=== PATIENT | female | born 1950 | race Two or more races ===

== ENCOUNTER → 2016-11-09 | Outpatient (CLI) | payer OTHER ==
--- NOTE | 2016-11-09 12:07 | RAD ---
Lumbar spine, 3 views, 11/09/2016: History: Back and left hip pain There is a mild left convexity lumbar scoliosis. The lumbar vertebral heights are well-maintained. There is mild disc space narrowing at several levels in the lower thoracic and upper lumbar spine. There are moderate scattered marginal spurs. There are mild degenerative changes involving the facet joints in the lower lumbar region. The paraspinous soft tissues are unremarkable. IMPRESSION: 1. Mild lumbar scoliosis. 2. Mild to moderate multilevel degenerative change. 3. No acute bony abnormality is detected. Left hip, 2 views, 11/09/2016: No fracture or dislocation is identified. The hip joint space is well-preserved. The periarticular soft tissues are unremarkable. IMPRESSION: No significant left hip abnormality is detected.
--- NOTE | 2016-11-10 14:24 | RAD ---
DATE: 11/09/2016 EXAM: DIGITAL SCREEN BILAT W/CAD HISTORY: Screening study. COMPARISON: None. This study was interpreted with the benefit of Computerized Aided Detection (CAD). FINDINGS: Digital MLO and CC mammograms of both breasts were obtained. The patient's previous mammograms were performed somewhere in [place] and are unavailable for comparison. The breast parenchyma is composed of scattered fibroglandular densities which can obscure a lesion on mammography (breast density code B). Benign-appearing calcifications are seen within both breasts. No spiculated mass is seen. No malignant appearing calcification or area of architectural distortion is noted. IMPRESSION: BI-RADS Category 1, negative. There is no mammographic evidence of malignancy. Routine yearly screening mammography is recommended for follow-up. BI-RADS CATEGORY: 1 NEGATIVE RECOMMENDED FOLLOW-UP: 12M 12 MONTH FOLLOW-UP PQRS compliance statement: Patient information was entered into a reminder system with a target due date 11/09/2017 for the next mammogram. Mammography is a sensitive method for finding small breast cancers, but it does not detect them all and is not a substitute for careful clinical examination. A negative mammogram does not negate a clinically suspicious finding and should not result in delay in biopsying a clinically suspicious abnormality. "Our facility is accredited by the [employer] Mammography Program."
== END | disposition home or self-care (01) ==
LOC: RAD 11:05
PROVIDERS: ATTEND Family Medicine
DX: Z12.31 Encounter for screening mammogram for malignant neoplasm of breast (principal); M54.5 Low back pain; M41.86 Other forms of scoliosis, lumbar region; M25.552 Pain in left hip
CPT/HCPCS: 72100; 73502; G0202; 77067

== ENCOUNTER 2019-01-03 10:03 | Outpatient (CLI) | payer OTHER, MEDICAID ==
[~2019-01-03] VITALS: Ht 152.4 cm; Wt 72.6 kg
[~2019-01-03 10:03] MED LIST: ERTA1VIA IV; LACT1CAP19 PO
[2019-01-03 10:44] VITALS: BP 97/62
[2019-01-03] MEDS ORDERED: LIDOCAINE WITH 8.4% SOD BICARB 3 ML DISP.SYRIN. ONE (11:05)
[2019-01-03] MEDS ORDERED: LIDOCAINE WITH 8.4% SOD BICARB 3 ML DISP.SYRIN. IJ ONE (11:30)
[2019-01-03] MEDS ORDERED: LIDOCAINE WITH 8.4% SOD BICARB 3 ML DISP.SYRIN. INJ ONE (11:45)
--- NOTE | 2019-01-03 12:00 | NUR ---
Discharge Note: ISAI SIMMS Discharge instructions and discharge home medications reviewed with Patient and son; and a copy given. All questions have been answered and understanding verbalized. The following instructions and handouts were given: PICC line placement and care. Discontinued lines and drains: Right midline dc'd and [place] upper arm PICC line placed. Per Dr. Ho Patient discharged to home with son via car.
--- NOTE | 2019-01-03 12:28 | RAD ---
Exam: Fluoroscopic and ultrasound guided right percutaneous inserted central venous catheter placement 01/03/2019 12:24 PM .Indication: Long-term IV infusions Technique: Informed oral and written consent were obtained. The right upper extremity was prepped and draped using sterile barrier technique. All elements of maximal sterile barrier technique including the use of a cap, mask, sterile gown, sterile gloves, large sterile sheet, appropriate hand hygiene, and 2% chlorhexidine for cutaneous antisepsis (or acceptable alternative antiseptic per current guidelines) were followed for this procedure.. Real-time ultrasound demonstrated a patent right basilic vein. The right upper extremity was prepped and draped in usual sterile fashion. 1% lidocaine used for local anesthesia. Using real-time ultrasound guidance the access needle percutaneously punctured the selected vein. Reference ultrasound images were saved to the medical record. A guidewire was advanced through the needle to the cavoatrial junction, and a peel-away sheath placed. The catheter was cut to length and inserted through the peel-away sheath. The final position of the catheter was confirmed by fluoroscopy, with tip at the cavoatrial junction. The wire and sheath were removed, and the catheter secured in place, and a sterile dressing was applied. Catheter was found to flush and aspirate normally. No immediate complications are identified. FLUORO TIME: 0.3 minutes DOSE AREA PRODUCT: 2 Gycm2 Impression: Ultrasound and fluoroscopically guided placement of a right upper extremity PICC line.
== END 2019-01-03 12:00 | disposition home or self-care (01) ==
LOC: INTRAD 10:03 → MERGE 10:03 → INTRAD 12:00
PROVIDERS: ATTEND Family Medicine
DX: Z45.2 Encounter for adjustment and management of vascular access device (principal)
CPT/HCPCS: 36573; C1751; C1892; 36569; 76937; 77001

== ENCOUNTER → 2019-02-19 | Outpatient (CLI) | payer OTHER, MEDICAID ==
--- NOTE | 2019-02-19 16:22 | RAD ---
MRI Lumbar Spine without contrast History: Low back pain, radicular pain Technique: Multiplanar, multi sequential noncontrast MR imaging was performed of the lumbar spine. Comparison: None Findings: Lumbar vertebral body stature is overall maintained. There is very mild grade 1 anterior spondylolisthesis at L4-L5. There is minimal posterior subluxation L1 relative L2. Conus terminates at T12-L1. There is moderate degenerative disc disease greater anteriorly at L1-2, associated degenerative endplate change. There is mild degenerative disc disease L2-3 through L4-5. There is trace L1-2 endplate edema likely reactive/degenerative in etiology. There is wdaw-ne-ztgzgbza levoscoliosis centered near L2. It would be difficult to exclude some increased T2 and STIR signal of the visualized distal cord although could be artifactual. Not fully evaluated, there is exophytic focus of T2 hyperintense signal of the right kidney about 4.8 cm. There is probable moderate right hydronephrosis not fully evaluated. L1-L2: There is minimal disc osteophyte complex and bulge. There is mild buckling of the ligamentum flavum and facet degenerative change. There is mild narrowing of the far lateral recesses somewhat greater on the right. There is mild to moderate narrowing of the right neural foramen primarily from posteriorly by facet, left neural foramen adequate. L2-L3: There is mild buckling of the ligamentum flavum and facet hypertrophic change. There is a shallow protrusion eccentric to the far left lateral recess about 1 to 2 mm AP. There is mild narrowing of the far lateral recesses greater on the left. There is mild narrowing of the left neural foramen, right neural foramen overall adequate. L3-L4: There is mild buckling of the ligamentum flavum and facet hypertrophic change. There is minimal narrowing of the far lateral recesses. There is minimal narrowing of the left neural foramen, right neural foramen adequate. L4-L5: There is minimal disc osteophyte complex. There is mild buckling of the ligamentum flavum and facet hypertrophic change. There is jzqd-pj-oyoueytn narrowing of the far right lateral recess, to lesser degree on the left. There is mild to moderate narrowing of the left neural foramen by facet and disc osteophyte complex, right neural foramen not significantly narrowed. L5-S1: Spinal canal and neural foramina are adequate. There is ghpj-jo-txepkcjv facet degenerative change. Impression: 1. There is variable narrowing of the lateral recesses as stated most notable right greater than left at L4-5 and on the left at L2-3. 2. There is moderate degenerative disc disease L1-2, minimally L2-3 through L4-5. There is mild spondylosis. 3. There is kwck-jx-bebyfcne narrowing of the left L4-5 and right L1-2 neural foramina, other minimal narrowing as stated. 4. There is kgej-ui-epalvulb lumbar levoscoliosis centered near L2. 5. There is suspected moderate right hydronephrosis. There is exophytic lesion of the right kidney which may be a large cyst although not fully evaluated. 6. It is difficult to exclude mild increased T2 and STIR signal of the visualized distal cord although findings possibly artifactual especially if no clinical suspicion for thoracic myelopathy. Electronically signed by: Lucio Samano MD (02/19/2019 4:19 PM) [id number]
== END | disposition home or self-care (01) ==
LOC: MRI 14:00
PROVIDERS: ATTEND Family Medicine
DX: M48.061 Spinal stenosis, lumbar region without neurogenic claudication (principal); M51.16 Intervertebral disc disorders with radiculopathy, lumbar region; M47.26 Other spondylosis with radiculopathy, lumbar region; M47.818 Spondylosis without myelopathy or radiculopathy, sacral and sacrococcygeal region; M43.16 Spondylolisthesis, lumbar region; M53.2X6 Spinal instabilities, lumbar region; M25.78 Osteophyte, vertebrae
CPT/HCPCS: 72148

== ENCOUNTER → 2019-03-12 | Outpatient (CLI) | payer OTHER, MEDICAID ==
--- NOTE | 2019-03-12 17:30 | RAD ---
RENAL COMPLETE BILATERAL History: Renal cysts Comparison: December 20, [address] exam Findings: Multiple sonographic images of the kidneys and retroperitoneal structures are submitted. Right kidney measured 8.3 x 3.9 x 5.6 cm. There is anechoic lesion of the mid right kidney about 5.9 x 5.7 x 6.2 cm. Left kidney measured 11.5 x 4.8 x 4.7 cm. There is anechoic lesion of the superior left kidney about 4.7 x 5 x 4.9 cm. There is no hydronephrosis of either kidney. Urinary bladder is not well distended during exam for accurate evaluation. There is segmental visualization of the inferior vena cava. Abdominal aortic caliber is within normal limits up to 1.5 cm distally, proximally obscured by bowel gas. Impression: 1. There are simple bilateral renal cysts, no hydronephrosis of either kidney. Electronically signed by: Lucio Samano MD (03/12/2019 5:28 PM) [id number]
== END | disposition home or self-care (01) ==
LOC: US 10:57
PROVIDERS: ATTEND Family Medicine
DX: N28.1 Cyst of kidney, acquired (principal); N28.89 Other specified disorders of kidney and ureter
CPT/HCPCS: 76770

== ENCOUNTER 2019-07-13 10:22 | Emergency (ER) | payer OTHER, MEDICAID ==
[~2019-07-13] VITALS: Ht 152.4 cm; Wt 76.8 kg
[2019-07-13 10:31] VITALS: BP 156/69
[2019-07-13] MEDS ORDERED: METH4TAB2 PO (10:44)
[2019-07-13] MEDS ORDERED: BENZ100C PO (10:44)
--- NOTE | 2019-07-13 10:48 | PHYS DOC ---
Adult General Chief Complaint Chief Complaint: COUGH HPI HPI Patient is a 68 year old female who presents with 3 days of dry cough and redness around her eyes. She states she's been taking Benadryl is not helping. Patient denies shortness of air, chest pain, vomiting, nausea, abdominal pain, sore throat, nasal congestion, vision changes, weakness, fever, headache, dizziness. Patient denies any pain. Review of Systems Review of Systems Eyes: Denies change in visual acuity, redness, or eye pain. Dry eyes. [] Respiratory: cough or denies shortness of breath [] Integument: Red skin around eyes. Denies rash or skin lesions [] All other systems were reviewed and found to be within normal limits, except as documented in this note. Allergies Allergies Allergies Coded Allergies Type Severity Reaction Last Updated Verified I S O L A T I O N *CONTACT* Allergy Unknown 01/02/19 No Penicillins Allergy Unknown 01/02/19 No Physical Exam Physical Exam Constitutional: Well developed, well nourished, no acute distress, non-toxic appearance. [] HENT: Normocephalic, atraumatic, bilateral external ears normal, oropharynx moist, no oral exudates, nose normal. Red, dry skin around eye bilaterally. [] Eyes: PERRLA, EOMI, conjunctiva normal, no discharge. [] Neck: Normal range of motion, no tenderness, supple, no stridor. [] Cardiovascular:Heart rate regular rhythm, no murmur [] Lungs & Thorax: Bilateral breath sounds clear to auscultation [] Abdomen: Bowel sounds normal, soft, no tenderness, no masses, no pulsatile masses. [] Skin: Warm, dry, no erythema, no rash. [] Back: No tenderness, no CVA tenderness. [] Extremities: No tenderness, no cyanosis, no clubbing, ROM intact, no edema. [] Neurologic: Alert and oriented X 3, normal motor function, normal sensory function, no focal deficits noted. [] Psychologic: Affect normal, judgement normal, mood normal. [] EKG EKG [] Radiology/Procedures Radiology/Procedures [] Course & Med Decision Making Course & Med Decision Making Pertinent Labs and Imaging studies reviewed. (See chart for details) She has dry skin around her eyes bilaterally that is reddened and dry. No swelling around her eyes. Patient states her eyes also feel very dry. Patient states that she has the heat turned up very high in the house and uses no lotions. Patient states her cough is dry but is not very bothersome. Alert and oriented. Speaks in full clear sentences. Ambulatory with a steady gait. Son is in the room and he is interpreting for the patient. Mucous membranes are moist. Vital signs within normal limits. Patient is afebrile. Patient is stable and in no distress. Clear to auscultation all lobes. Bilateral tympanic white. Throat is pink without exudates or swelling. She is advised to use Visine for dry eyes, lotions or Vaseline for her dry skin. I will order her a prednisone dose pack and Tessalon Perles for her cough. [] Dragon Disclaimer Dragon Disclaimer This electronic medical record was generated, in whole or in part, using a voice recognition dictation system. Departure Departure Impression: Primary Impression: Cough Additional Impression: Dry skin Disposition: 01 HOME, SELF-CARE Condition: STABLE Referrals: CORRIE WILHELM MD (PCP) Patient Instructions: Cough, Adult Additional Instructions: Follow up with primary care provider. Use vaseline or A &D ointment for dry skin patches. Take medications as prescribed. Scripts Benzonatate (TESSALON PERLE) 100 Mg Capsule 1 CAP PO TID, #30 CAP Prov: HAKEEM CAIN APRN 07/13/19 Methylprednisolone (MEDROL) 4 Mg Tab.ds.pk 1 PKG PO UD, #1 PKG Prov: HAKEEM CAIN APRN 07/13/19 Problem Qualifiers HAKEEM CAIN APRN Jul 13, 2019 10:48
== END 2019-07-13 10:54 | disposition home or self-care (01) ==
LOC: ER 10:22
DX: L85.3 Xerosis cutis (principal); R05 Cough
CPT/HCPCS: 99283

== ENCOUNTER → 2019-12-18 | Outpatient (CLI) | payer OTHER, MEDICAID ==
[~2019-12-18] MED LIST changes: +BENZ100C PO; -ERTA1VIA IV; +ERTA1VIA16 IV; +METH4TAB2 PO
--- NOTE | 2019-12-18 10:57 | KCIC ---
EXAM: Bilateral hips and pelvis, 3 views; lumbar spine, 3 views. HISTORY: Pain COMPARISON: 11/09/2016. FINDINGS: Pelvis and bilateral hips: A frontal view the pelvis and 2 views of the hips are obtained. There is no fracture, dislocation or subluxation. The femoral heads are normal in configuration. Lumbar spine: 3 views of the lumbar spine are obtained. There is lumbar levoscoliosis centered at L2. There is lumbar hyperlordosis. There is grade 1 anterolisthesis of L4 and L5 and L5 on S1 and mild retrolisthesis of L1 on L2 and L2 on L3. There is degenerative endplate remodeling with disc space narrowing and spurring primarily at the lower thoracic and upper lumbar levels. There is facet arthropathy predominantly at the lower lumbar levels. IMPRESSION: 1. Multilevel degenerative change involving the lower thoracic and lumbar spine, described above. 2. Lumbar levoscoliosis and multilevel listhesis. 3. No acute osseous finding. Electronically signed by: Lin Sweet MD (12/18/2019 10:54 AM) [id number]
== END | disposition home or self-care (01) ==
LOC: KCIC 09:36
PROVIDERS: ATTEND Nurse Practitioner Gerontology
DX: M47.815 Spondylosis without myelopathy or radiculopathy, thoracolumbar region (principal); M41.86 Other forms of scoliosis, lumbar region; M43.17 Spondylolisthesis, lumbosacral region; M25.551 Pain in right hip; M25.552 Pain in left hip
CPT/HCPCS: 72100; 73521

== ENCOUNTER → 2020-01-07 | Outpatient (CLI) | payer OTHER, MEDICAID ==
--- NOTE | 2020-01-07 15:10 | RAD ---
LUMBAR SPINE WO CONTRAST Date: 01/07/2020 1:00 PM Indication: Reason: LBP / Spl. Instructions: / History: Comparison: Radiograph 12/18/2019. MRI 02/19/2019. Technique: Multi-planar multi-weighted magnetic resonance imaging of the lumbar spine was performed without intravenous contrast using the standard lumbar spine protocol. FINDINGS: Trace retrolisthesis at L1-2. Left convex lumbar curvature. No acute fracture. Mild multilevel degenerative disc desiccation and disc height loss. No marrow replacing process to suggest malignancy. The conus terminates at a normal level. No abnormal signal is seen within the visualized distal spinal cord. No clumping of intrathecal nerve roots. Partially visualized right renal cyst. T12-L1: Disc bulge. No facet arthropathy. No significant spinal stenosis or neural foraminal narrowing. L1-L2: Disc bulge. Mild facet arthropathy. Mild spinal stenosis and right lateral recess narrowing. Moderate right and mild left neural foraminal narrowing. L2-L3: Disc bulge. Mild facet arthropathy. Mild spinal stenosis and lateral recess narrowing. Mild to moderate bilateral neural foraminal narrowing. L3-L4: Disc bulge. Mild facet arthropathy. Mild spinal stenosis right lateral recess narrowing. Mild to moderate bilateral neural foraminal narrowing. L4-L5: Disc bulge. Mild facet arthropathy. Ligamentum flavum thickening. Mild to moderate spinal stenosis and lateral recess narrowing. Mild to moderate bilateral neural foraminal narrowing. L5-S1: Disc bulge. Mild right and moderate left facet arthropathy. No significant spinal stenosis. Mild left neural foraminal narrowing. IMPRESSION: Mild to moderate lumbar spondylosis, detailed level by level above. Degenerative changes are not significantly progressed from the prior exam. Electronically signed by: Lucio Villa MD (01/07/2020 3:07 PM) [id number]
== END | disposition home or self-care (01) ==
LOC: MRI 12:45
PROVIDERS: ATTEND Nurse Practitioner Gerontology
DX: M47.816 Spondylosis without myelopathy or radiculopathy, lumbar region (principal); M43.16 Spondylolisthesis, lumbar region; M48.061 Spinal stenosis, lumbar region without neurogenic claudication; M99.53 Intervertebral disc stenosis of neural canal of lumbar region
CPT/HCPCS: 72148

== ENCOUNTER 2020-06-04 09:16 | Inpatient (IN) | payer OTHER, MEDICAID ==
[~2020-06-04] VITALS: Ht 152.4 cm; Wt 78.9 kg
--- NOTE | 2020-06-04 09:43 | PHYS DOC ---
Past Medical History Past Medical History hld Past Surgical History: No Surgical History Smoking Status: Never Smoker Alcohol Use: None General Adult EDM: Chief Complaint: WRIST PAIN HPI: HPI: This is a pleasant 69-year-old female presents emergency department today with left wrist injury after slipping on the ice. She reports falling forward and injuring her left wrist. She also has a small abrasion under her lip without laceration. She did hit her head but she did not pass out. The pain in her wrist is moderate to severe throbbing aching pain without alleviating factors. She reports normal motor and sensory function of the hand distally. She denies any other injuries. Review of systems negative for chest pain shortness of breath vomiting fevers chills. All other review of systems negative. ED course: 69-year-old female presenting with left wrist injury after a fall. X-ray shows distal radius fracture. Spoke with Dr. Pulido our orthopedic surgeon who will plan on surgical treatment. Will admit the patient to the hospitalist. I spoke with the hospitalist who accepts the patient for admission. Patient was splinted prior to admission in a sugar tong. Splint is within normal limits with 2-second cap refill. Heart Score: Risk Factors: Risk Factors: DM, Current or recent (<one month) smoker, HTN, HLP, family history of CAD, obesity. Risk Scores: Score 0 - 3: 2.5% MACE over next 6 weeks - Discharge Home Score 4 - 6: 20.3% MACE over next 6 weeks - Admit for Clinical Observation Score 7 - 10: 72.7% MACE over next 6 weeks - Early Invasive Strategies Allergies: Allergies: Allergies Coded Allergies Type Severity Reaction Last Updated Verified I S O L A T I O N *CONTACT* Allergy Unknown 01/02/19 No Penicillins Allergy Unknown 01/02/19 No Physical Exam: PE: General Appearance alert, cooperative, no distress, responsive Head Normocephalic, without obvious abnormality, atraumatic Eyes conjunctivae/corneas clear. PERRL, EOM's intact. Ears normal TM's and external ear canals AU Nose Nares normal. Septum midline. Mucosa normal. No drainage or sinus tenderness. Mouth: small abrasion under the lip without laceration. teeth in normal alignment. tongue normal. Throat no blood or lacerations, normal alignment Neck supple, symmetrical, trachea midline Back/Spine symmetric, normal curvature. ROM normal, no abrasions, no tenderness to palpation, no step-offs Lungs clear to auscultation bilaterally Chest Wall normal ribcage without tenderness to palpation, crepitus or emphysema Heart reg rate and regular rhythm, S1, S2 normal, no murmur, click, rub or gallop Abdomen soft, non-tender. Bowel sounds normal. No masses, no organomegaly Pelvic stable Extremities The patient's left wrist is deformed without any abrasions lacerations. Skin overlying is intact. No punctate lesions. Normal sensation of the hand. Patient is able to make an A-OK, cross fingers and gives a thumbs up. The elbow proximally and shoulder are nontender. Nontender clavicle. 2-second cap refill with palpable radial pulse. The remainder of the extremities are nontender with normal range of motion of the joints without any pain with range of motion of the joints. Her hips are nontender bilaterally with passive range of motion of the joints. Palpable pulse distally with 2-second cap refill of the remainder the extremities. Pulses 2+ and symmetric Skin Skin color, texture, turgor normal. No rashes or lesions Neurologic Grossly normal Eye opening: (4) spontaneous Best motor response: (6) obeys verbal command Best verbal response: (5) oriented and converses Total [place] (E + M + V) = 15 EKG: EKG: [] Radiology/Procedures: Radiology/Procedures: [] Course & Med Decision Making: Course & Med Decision Making Pertinent Labs and Imaging studies reviewed. (See chart for details) [] Dragon Disclaimer: Dragon Disclaimer: This electronic medical record was generated, in whole or in part, using a voice recognition dictation system. Departure Departure Impression: Primary Impression: Wrist fracture Disposition: ADMITTED INPT THIS HOSP Admitting Physician: HIMJignesh Condition: STABLE Referrals: CORRIE WILHELM MD (PCP) SAHRA DUENAS MD Jun 04, 2020 09:43
[2020-06-04] MEDS ORDERED: HYDROmorphone 2 MG/ML VIAL IVP ONE ×2 (09:45→12:30)
--- NOTE | 2020-06-04 10:04 | RAD ---
EXAM: Left wrist, 3 views. HISTORY: Pain. COMPARISON: None. FINDINGS: 3 views of the left wrist are obtained. There is a comminuted displaced and angulated dista l radial metaphyseal fracture with dorsal inclination of the distal radial articular surface. No werner tional fracture is seen. There is soft tissue swelling. IMPRESSION: Comminuted distal radial metaphyseal fracture. Electronically signed by: Lin Sweet MD (06/04/2020 10:01 AM) [id number]
[2020-06-04] MEDS ORDERED: LIDOCAINE 2% Multi-Dose 20 ML VIAL. IJ ONE (10:15)
--- NOTE | 2020-06-04 10:54 | RAD ---
CT HEAD WITHOUT CONTRAST 06/04/2020 10:02 AM Indication: Reason: head injury / Spl. Instructions: / History: Comparison: None available Procedure: Multidetector CT imaging of the head was performed without the administration of contrast. Findings: There is no evidence of acute intracranial hemorrhage. There is no evidence of acute territ orial infarction. Please note that CT is limited for evaluation of acute ischemia. No mass effect or midline shift is identified . The ventricles and basilar cisterns have an appropriate appearance. No abnormal extra-axial fluid collections are seen. No acute osseous changes are identified. Impression: No evidence of acute intracranial abnormality CT DOSING PQRS STATEMENT: One or more of the following individualized dose reduction techniques were utilized for this examinat ion: 1. Automated exposure control 2. Adjustment of the mA and/or kV according to patient size 3. Use of iterative reconstruction technique Electronically signed by: Reese Ho MD (06/04/2020 10:41 AM) [id number]
[2020-06-04] MEDS ORDERED: IV NORMAL SALINE 1000ML BAG 1,000 ML IV SCH (12:15)
[2020-06-04 12:31] LABS: BASO % 0 % (0-3); EOS # 0.1 x10^3/uL (0.0-0.7); EOS % 2 % (0-3); HEMATOCRIT 36.3 % (36.0-47.0); HEMOGLOBIN 12.2 g/dL (12.0-15.5); LYMPH # 1.4 x10^3/uL (1.0-4.8); LYMPH % 25 % (24-48); MEAN CORPUSCULAR HEMOGLOBIN 32 pg (25-35); MEAN CORPUSCULAR HGB CONC 34 g/dL (31-37); MEAN CORPUSCULAR VOLUME 94 fL (79-100); MONO # 0.3 x10^3/uL (0.0-1.1); MONO % 6 % (0-9); NEUT # 3.8 x10^3/uL (1.8-7.7); NEUT % 67 % (31-73); PLATELET COUNT 159 x10^3/uL (140-400); RED BLOOD COUNT 3.85 x10^6/uL (3.50-5.40); RED CELL DISTRIBUTION WIDTH 14.4 % (11.5-14.5); WHITE BLOOD COUNT 5.6 x10^3/uL (4.0-11.0)
[2020-06-04 12:40] LABS: CALCIUM 8.5 mg/dL (8.5-10.1); CREATININE 0.7 mg/dL (0.6-1.0); GFR 82.5; POTASSIUM 4.1 mmol/L (3.5-5.1)
[2020-06-04 12:47] LABS: ALBUMIN 3.4 g/dL (3.4-5.0); ALBUMIN/GLOBULIN RATIO 1.3 (1.0-1.7); TOTAL BILIRUBIN 0.4 mg/dL (0.2-1.0)
[2020-06-04 15:00] VITALS: BP_SYST 108; BP_SYST 116; BP_DIAS 80
[2020-06-04] MEDS ORDERED: ONDANSETRON PF 4 MG/2 ML VIAL. IVP PRN (15:00)
--- NOTE | 2020-06-04 16:36 | PDOC2 ---
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 Her granddaughter was in the room and helped to translate. The patient slipped on ice and fell injuring the wrist, with obvious deformity. She was admitted through the emergency room. Orthopedics was consulted. She bumped her lip and has some swelling there. Some left elbow pain as well. The wrist is the most painful and is the only thing deformed. The skin was reported is intact. Social History No ALCOHOL: rare Lives: with Family Current Medications Current Medications Current Medications Hydromorphone HCl (Dilaudid) 0.5 mg 1X ONCE IVP Last administered on 06/04/20at 10:08; Start 06/04/20 at 09:45; Stop 06/04/20 at 09:46; Status DC Lidocaine HCl (Lidocaine 2% 20ml Vial) 10 ml 1X ONCE IJ Last administered on 06/04/20at 10:15; Start 06/04/20 at 10:15; Stop 06/04/20 at 10:16; Status DC Sodium Chloride 1,000 ml @ 100 mls/hr Q10H IV Last administered on 06/04/20at 12:34; Start 06/04/20 at 12:15; Stop 06/04/20 at 16:14; Status DC Hydromorphone HCl (Dilaudid) 0.5 mg 1X ONCE IVP Last administered on 06/04/20at 12:34; Start 06/04/20 at 12:30; Stop 06/04/20 at 12:31; Status DC Ondansetron HCl (Zofran) 4 mg PRN Q6HRS PRN IVP NAUSEA/VOMITING; Start 06/04/20 at 15:00 Ondansetron HCl (Zofran) 4 mg PRN Q6HRS PRN IV NAUSEA/VOMITING Last administered on 06/04/20at 16:02; Start 06/05/20 at 07:00; Stop 06/06/20 at 06:59 Fentanyl Citrate (Fentanyl 2ml Vial) 25 mcg PRN Q5MIN PRN IV MILD PAIN 1-3; Start 06/05/20 at 07:00; Stop 06/06/20 at 06:59 Fentanyl Citrate (Fentanyl 2ml Vial) 50 mcg PRN Q5MIN PRN IV MODERATE TO SEVERE PAIN; Start 06/05/20 at 07:00; Stop 06/06/20 at 06:59 Morphine Sulfate (Morphine Sulfate) 1 mg PRN Q10MIN PRN IV SEVERE PAIN 7-10; Start 06/05/20 at 07:00; Stop 06/06/20 at 06:59 Ringer's Solution 1,000 ml @ 30 mls/hr Q24H IV ; Start 06/05/20 at 07:00; Stop 06/05/20 at 18:59 Lidocaine HCl (Xylocaine-Mpf 1% 2ml Vial) 2 ml PRN 1X PRN ID PRIOR TO IV START; Start 06/05/20 at 07:00; Stop 06/06/20 at 06:59 Hydromorphone HCl (Dilaudid) 0.5 mg PRN Q10MIN PRN IV SEV PAIN, Second choice; Start 06/05/20 at 07:00; Stop 06/06/20 at 06:59 Prochlorperazine Edisylate (Compazine) 5 mg PACU PRN PRN IV NAUSEA, MRX1; Start 06/05/20 at 07:00; Stop 06/06/20 at 06:59 Benzonatate (Tessalon Perle) 100 mg TID PO ; Start 06/04/20 at 21:00 Ertapenem (INVanz 1GM IVPB for PT ASSIST PROGRAM) 1 gm DAILY IV ; Start 06/05/20 at 09:00; Status UNV Lactobacillus Rhamnosus (Culturelle) 1 cap DAILY PO ; Start 06/05/20 at 09:00 Active Scripts Active Tessalon Perle (Benzonatate) 100 Mg Capsule 1 Cap PO TID Medrol (Methylprednisolone) 4 Mg Tab.ds.pk 1 Pkg PO UD Reported Culturelle (Lactobacillus Rhamnosus Gg) 1 Each Cap.sprink 1 Each PO DAILY Invanz (Ertapenem Sodium) 1 Gm Vial 1 Gm IV DAILY Allergies Allergies: Coded Allergies: I S O L A T I O N *CONTACT* (Verified Allergy, Unknown, 06/05/20) ESBL urine Penicillins (Verified Allergy, Unknown, 06/05/20) TOLERATES ERTAPENEM ROS Review of System Review of systems negative for chest pain shortness of breath vomiting fevers chills. All other review of systems negative Physical Exam General: Alert, Cooperative, Other (Lip contusion with minor abrasion, no active bleeding. No apparent loose teeth.) HEENT: Other (As above lip contusion. Otherwise atraumatic.) Lungs: Normal air movement Heart: Regular rate Abdomen: Soft Extremities: No cyanosis, Normal pulses, Other (The wrist is in a splint which was not removed for the exam. There seems to be slight swelling at the wrist area. The alignment is mildly deformed even through the splint. There is tenderness at the wrist despite the splint. Motion is decreased but there is no evidence of specific neurovascular injury. Capillary refill is normal. Pulse is not assessable due to the tenderness of the wrist. Light touch sensation is intact. Motor function is present for the radial ulnar and median nerves. There is mild tenderness at the elbow. The skin is reported as intact over the fracture.) Skin: No breakdown, No significant lesion Neuro: Normal speech, Sensation intact Psych/Mental Status: Mental status NL, Mood NL Vitals VITALS Vital Signs Date Time Temp Pulse Resp B/P (MAP) Pulse Ox O2 Delivery O2 Flow Rate FiO2 06/04/20 15:00 98.2 81 16 116/80 (92) 96 Room Air 98.2 Labs Labs Laboratory Tests Test 06/04/20 12:08 06/04/20 12:20 White Blood Count 5.6 x10^3/uL (4.0-11.0) Red Blood Count 3.85 x10^6/uL (3.50-5.40) Hemoglobin 12.2 g/dL (12.0-15.5) Hematocrit 36.3 % (36.0-47.0) Mean Corpuscular Volume 94 fL (79-100) Mean Corpuscular Hemoglobin 32 pg (25-35) Mean Corpuscular Hemoglobin Concent 34 g/dL (31-37) Red Cell Distribution Width 14.4 % (11.5-14.5) Platelet Count 159 x10^3/uL (140-400) Neutrophils (%) (Auto) 67 % (31-73) Lymphocytes (%) (Auto) 25 % (24-48) Monocytes (%) (Auto) 6 % (0-9) Eosinophils (%) (Auto) 2 % (0-3) Basophils (%) (Auto) 0 % (0-3) Neutrophils # (Auto) 3.8 x10^3/uL (1.8-7.7) Lymphocytes # (Auto) 1.4 x10^3/uL (1.0-4.8) Monocytes # (Auto) 0.3 x10^3/uL (0.0-1.1) Eosinophils # (Auto) 0.1 x10^3/uL (0.0-0.7) Basophils # (Auto) 0.0 x10^3/uL (0.0-0.2) Sodium Level 140 mmol/L (136-145) Potassium Level 4.1 mmol/L (3.5-5.1) Chloride Level 106 mmol/L (98-107) Carbon Dioxide Level 25 mmol/L (21-32) Anion Gap 9 (6-14) Blood Urea Nitrogen 25 mg/dL (7-20) Creatinine 0.7 mg/dL (0.6-1.0) Estimated GFR (Cockcroft-Gault) 82.5 BUN/Creatinine Ratio 36 (6-20) Glucose Level 94 mg/dL (70-99) Calcium Level 8.5 mg/dL (8.5-10.1) Total Bilirubin 0.4 mg/dL (0.2-1.0) Aspartate Amino Transf (AST/SGOT) 25 U/L (15-37) Alanine Aminotransferase (ALT/SGPT) 35 U/L (14-59) Alkaline Phosphatase 45 U/L (46-116) Total Protein 6.0 g/dL (6.4-8.2) Albumin 3.4 g/dL (3.4-5.0) Albumin/Globulin Ratio 1.3 (1.0-1.7) SARS-CoV-2 Antigen (Rapid) Negative (NEGATIVE) Laboratory Tests Test 06/04/20 12:08 06/04/20 12:20 White Blood Count 5.6 x10^3/uL (4.0-11.0) Red Blood Count 3.85 x10^6/uL (3.50-5.40) Hemoglobin 12.2 g/dL (12.0-15.5) Hematocrit 36.3 % (36.0-47.0) Mean Corpuscular Volume 94 fL (79-100) Mean Corpuscular Hemoglobin 32 pg (25-35) Mean Corpuscular Hemoglobin Concent 34 g/dL (31-37) Red Cell Distribution Width 14.4 % (11.5-14.5) Platelet Count 159 x10^3/uL (140-400) Neutrophils (%) (Auto) 67 % (31-73) Lymphocytes (%) (Auto) 25 % (24-48) Monocytes (%) (Auto) 6 % (0-9) Eosinophils (%) (Auto) 2 % (0-3) Basophils (%) (Auto) 0 % (0-3) Neutrophils # (Auto) 3.8 x10^3/uL (1.8-7.7) Lymphocytes # (Auto) 1.4 x10^3/uL (1.0-4.8) Monocytes # (Auto) 0.3 x10^3/uL (0.0-1.1) Eosinophils # (Auto) 0.1 x10^3/uL (0.0-0.7) Basophils # (Auto) 0.0 x10^3/uL (0.0-0.2) Sodium Level 140 mmol/L (136-145) Potassium Level 4.1 mmol/L (3.5-5.1) Chloride Level 106 mmol/L (98-107) Carbon Dioxide Level 25 mmol/L (21-32) Anion Gap 9 (6-14) Blood Urea Nitrogen 25 mg/dL (7-20) Creatinine 0.7 mg/dL (0.6-1.0) Estimated GFR (Cockcroft-Gault) 82.5 BUN/Creatinine Ratio 36 (6-20) Glucose Level 94 mg/dL (70-99) Calcium Level 8.5 mg/dL (8.5-10.1) Total Bilirubin 0.4 mg/dL (0.2-1.0) Aspartate Amino Transf (AST/SGOT) 25 U/L (15-37) Alanine Aminotransferase (ALT/SGPT) 35 U/L (14-59) Alkaline Phosphatase 45 U/L (46-116) Total Protein 6.0 g/dL (6.4-8.2) Albumin 3.4 g/dL (3.4-5.0) Albumin/Globulin Ratio 1.3 (1.0-1.7) SARS-CoV-2 Antigen (Rapid) Negative (NEGATIVE) Images Images Report reviewed and images independently reviewed. Displaced distal radius fracture, seems to be extra-articular. The ulna and ulnar styloid appear intact. [facility] [address] [place] [address] IMAGING REPORT Signed PATIENT: ISAI SIMMS ACCOUNT: [id number] : 1950 LOCATION: ER AGE: 69 SEX: F EXAM STATUS: PRE ER ORD. PHYSICIAN: SAHRA DUENAS MD REASON: left wrist pain with deformity PROCEDURE: WRIST 3V LEFT EXAM: Left wrist, 3 views. HISTORY: Pain. COMPARISON: None. FINDINGS: 3 views of the left wrist are obtained. There is a comminuted displaced and angulated distal radial metaphyseal fracture with dorsal inclination of the distal radial articular surface. No additional fracture is seen. There is soft tissue swelling. IMPRESSION: Comminuted distal radial metaphyseal fracture. Electronically signed by: Lin Steel MD (06/04/2020 10:01 AM) [id number] DICTATED and SIGNED BY: LIN STEEL MD DATE: 06/04/20 1000 Assessment/Plan Assessment/Plan Colles' fracture of left radius, initial encounter for closed fracture S52.532A There is a displaced distal radius fracture. We discussed historical treatment such as closed reduction and casting, but such treatment often results in long- term deformity and dysfunction. I recommended open treatment with internal fixation using a volar locked plate and screw construct. The benefits of surgery include improved alignment, and most likely better long-term function. We discussed the potential risks of this treatment which include neurovascular injury, such as to the median nerve or radial artery, risks of tendon injury or tendon problems from the plate, possible need for hardware removal, risks of infection, risks of nonunion or malunion, or other potential surgical or anesthetic complications. Despite potential surgical risks, I believe surgical treatment will give the best result, and I do recommend surgery. She and I discussed the risks benefits and alternatives and she desires to proceed with open treatment internal fixation of the distal radius fracture. ELE STERN MD Jun 04, 2020 16:36
--- NOTE | 2020-06-04 17:48 | PDOC1 ---
History and Physical Date of Admission Date of Admission 06/04/2020 Identification/Chief Complaint Chief Complaint I fell Source Source: Chart review, Patient History of Present Illness History of Present Illness 69-year-old female with no significant past medical history other than dyslipidemia who was in her usual state of health until today when she suffered a stumble and fall from own height. The patient landed on her outstretched arm and suffered a wrist fracture She has aComminuted distal radial metaphyseal fracture. She is being admitted at the request of the ER for definitive treatment. The time my evaluation the patient is only complaint is pain over the affected area. She denied any lightheadedness no chest pain or palpitations prior to the event. She did not lose consciousness she did not hit pavement with her head and CT scan of the head was unremarkable. Plan of care has been explained detail and no other concerns were voiced by the patient. Denies any headache blurred vision no dysphagia odynophagia no slurred speech no neurological deficits no chest pain palpitations shortness of breath she denies any paroxysmal nocturnal dyspnea no orthopnea no recent angina type of symptoms no nausea vomiting diarrhea no abdominal pain no urinary symptoms and no peripheral edema were noted. Past Medical History Cardiovascular: Hyperlipidemia Past Surgical History Past Surgical History: No pertinent history Family History Family History: No Significant Social History Smoke: No ALCOHOL: none Drugs: None Current Problem List Problem List Problems Medical Problems: (1) Wrist fracture Status: Acute Current Medications Current Medications Current Medications Medications (Trade) Dose Ordered Sig/Samir Start Time Stop Time Status Last Admin Dose Admin Benzonatate (Tessalon Perle) 100 mg TID 06/04/20 21:00 Clindamycin Phosphate 50 ml @ 100 mls/hr 1X PREOP PRN 06/05/20 06:00 06/05/20 18:00 Ertapenem (INVanz 1GM IVPB for PT ASSIST PROGRAM) 1 gm DAILY 06/05/20 09:00 UNV Fentanyl Citrate (Fentanyl 2ml Vial) 50 mcg PRN Q5MIN PRN 06/05/20 07:00 06/06/20 06:59 Hydromorphone HCl (Dilaudid) 0.5 mg PRN Q10MIN PRN 06/05/20 07:00 06/06/20 06:59 Lactobacillus Rhamnosus (Culturelle) 1 cap DAILY 06/05/20 09:00 Lidocaine HCl (Lidocaine 2% 20ml Vial) 10 ml 1X ONCE 06/04/20 10:15 06/04/20 10:16 DC 06/04/20 10:15 10 ML Lidocaine HCl (Xylocaine-Mpf 1% 2ml Vial) 2 ml PRN 1X PRN 06/05/20 07:00 06/06/20 06:59 Morphine Sulfate (Morphine Sulfate) 1 mg PRN Q10MIN PRN 06/05/20 07:00 06/06/20 06:59 Ondansetron HCl (Zofran) 4 mg PRN Q6HRS PRN 06/05/20 07:00 06/06/20 06:59 06/04/20 16:02 4 MG Prochlorperazine Edisylate (Compazine) 5 mg PACU PRN PRN 06/05/20 07:00 06/06/20 06:59 Ringer's Solution 1,000 ml @ 30 mls/hr Q24H 06/05/20 07:00 06/05/20 18:59 Sodium Chloride 1,000 ml @ 100 mls/hr Q10H 06/04/20 12:15 06/04/20 16:14 DC 06/04/20 12:34 100 MLS/HR Allergies Allergies Allergies Coded Allergies Type Severity Reaction Last Updated Verified I S O L A T I O N *CONTACT* Allergy Unknown 01/02/19 No Penicillins Allergy Unknown 01/02/19 No ROS Review of System CONSTITUTIONAL: No fever or chills EYES: No recent changes SKIN: No rash or itching CARDIOVASCULAR: No chest pain, syncope, palpitations, or edema RESPIRATORY: No SOB or cough GASTROINTESTINAL: No nausea, vomiting or abdominal pain NEUROLOGICAL: No headaches or weakness ENDOCRINE: No cold or heat intolerance GENITOURINARY: No urgency or frequency of urination MUSCULOSKELETAL: No back pain or joint pain LYMPHATICS: No enlarged lymph nodes PSYCHIATRIC: No anxiety or depression Physical Exam Physical Exam GEN.: No apparent distress. Alert and oriented. HEENT: Head is normocephalic, atraumatic NECK: Supple. LUNGS: Clear to auscultation. HEART: RRR, S1, S2 present. Peripheral pulses intact ABDOMEN: Soft, nontender. Positive bowel sounds. EXTREMITIES: Without any cyanosis. NEUROLOGIC: Normal speech, normal tone PSYCHIATRIC: Normal affect, normal mood. SKIN: No ulcerations Vitals Vitals Vital Signs Date Time Temp Pulse Resp B/P (MAP) Pulse Ox O2 Delivery O2 Flow Rate FiO2 06/04/20 15:00 98.2 81 16 116/80 (92) 96 Room Air 98.2 Labs Labs Laboratory Tests Test 06/04/20 12:08 06/04/20 12:20 White Blood Count 5.6 x10^3/uL (4.0-11.0) Red Blood Count 3.85 x10^6/uL (3.50-5.40) Hemoglobin 12.2 g/dL (12.0-15.5) Hematocrit 36.3 % (36.0-47.0) Mean Corpuscular Volume 94 fL (79-100) Mean Corpuscular Hemoglobin 32 pg (25-35) Mean Corpuscular Hemoglobin Concent 34 g/dL (31-37) Red Cell Distribution Width 14.4 % (11.5-14.5) Platelet Count 159 x10^3/uL (140-400) Neutrophils (%) (Auto) 67 % (31-73) Lymphocytes (%) (Auto) 25 % (24-48) Monocytes (%) (Auto) 6 % (0-9) Eosinophils (%) (Auto) 2 % (0-3) Basophils (%) (Auto) 0 % (0-3) Neutrophils # (Auto) 3.8 x10^3/uL (1.8-7.7) Lymphocytes # (Auto) 1.4 x10^3/uL (1.0-4.8) Monocytes # (Auto) 0.3 x10^3/uL (0.0-1.1) Eosinophils # (Auto) 0.1 x10^3/uL (0.0-0.7) Basophils # (Auto) 0.0 x10^3/uL (0.0-0.2) Sodium Level 140 mmol/L (136-145) Potassium Level 4.1 mmol/L (3.5-5.1) Chloride Level 106 mmol/L (98-107) Carbon Dioxide Level 25 mmol/L (21-32) Anion Gap 9 (6-14) Blood Urea Nitrogen 25 mg/dL (7-20) Creatinine 0.7 mg/dL (0.6-1.0) Estimated GFR (Cockcroft-Gault) 82.5 BUN/Creatinine Ratio 36 (6-20) Glucose Level 94 mg/dL (70-99) Calcium Level 8.5 mg/dL (8.5-10.1) Total Bilirubin 0.4 mg/dL (0.2-1.0) Aspartate Amino Transf (AST/SGOT) 25 U/L (15-37) Alanine Aminotransferase (ALT/SGPT) 35 U/L (14-59) Alkaline Phosphatase 45 U/L (46-116) Total Protein 6.0 g/dL (6.4-8.2) Albumin 3.4 g/dL (3.4-5.0) Albumin/Globulin Ratio 1.3 (1.0-1.7) SARS-CoV-2 Antigen (Rapid) Negative (NEGATIVE) Laboratory Tests Test 06/04/20 12:08 06/04/20 12:20 White Blood Count 5.6 x10^3/uL (4.0-11.0) Red Blood Count 3.85 x10^6/uL (3.50-5.40) Hemoglobin 12.2 g/dL (12.0-15.5) Hematocrit 36.3 % (36.0-47.0) Mean Corpuscular Volume 94 fL (79-100) Mean Corpuscular Hemoglobin 32 pg (25-35) Mean Corpuscular Hemoglobin Concent 34 g/dL (31-37) Red Cell Distribution Width 14.4 % (11.5-14.5) Platelet Count 159 x10^3/uL (140-400) Neutrophils (%) (Auto) 67 % (31-73) Lymphocytes (%) (Auto) 25 % (24-48) Monocytes (%) (Auto) 6 % (0-9) Eosinophils (%) (Auto) 2 % (0-3) Basophils (%) (Auto) 0 % (0-3) Neutrophils # (Auto) 3.8 x10^3/uL (1.8-7.7) Lymphocytes # (Auto) 1.4 x10^3/uL (1.0-4.8) Monocytes # (Auto) 0.3 x10^3/uL (0.0-1.1) Eosinophils # (Auto) 0.1 x10^3/uL (0.0-0.7) Basophils # (Auto) 0.0 x10^3/uL (0.0-0.2) Sodium Level 140 mmol/L (136-145) Potassium Level 4.1 mmol/L (3.5-5.1) Chloride Level 106 mmol/L (98-107) Carbon Dioxide Level 25 mmol/L (21-32) Anion Gap 9 (6-14) Blood Urea Nitrogen 25 mg/dL (7-20) Creatinine 0.7 mg/dL (0.6-1.0) Estimated GFR (Cockcroft-Gault) 82.5 BUN/Creatinine Ratio 36 (6-20) Glucose Level 94 mg/dL (70-99) Calcium Level 8.5 mg/dL (8.5-10.1) Total Bilirubin 0.4 mg/dL (0.2-1.0) Aspartate Amino Transf (AST/SGOT) 25 U/L (15-37) Alanine Aminotransferase (ALT/SGPT) 35 U/L (14-59) Alkaline Phosphatase 45 U/L (46-116) Total Protein 6.0 g/dL (6.4-8.2) Albumin 3.4 g/dL (3.4-5.0) Albumin/Globulin Ratio 1.3 (1.0-1.7) SARS-CoV-2 Antigen (Rapid) Negative (NEGATIVE) VTE Prophylaxis Ordered VTE Prophylaxis Devices: No VTE Pharmacological Prophylaxi: Yes Assessment/Plan Assessment/Plan Comminuted distal radial metaphyseal fracture. Dyslipidemia Plan Resume home medication Pain managed Keep n.p.o. until orthopedic consultation has been done IV fluids Symptomatic relief of symptoms Further recommendations based on clinical course VT prophylaxis Lovenox Justifications for Admission Other Justification BOB ALEXANDER MD Jun 04, 2020 17:48
[2020-06-04 19:00] VITALS: BP 115/52
[2020-06-04] MEDS: BENZONATATE 100 MG CAPSULE. PO SCH (20:35)
[2020-06-04] MEDS: PSYLLIUM HUSK (SUGAR FREE) 1 PKT PACKET PO SCH (22:30)
[2020-06-04] MEDS ORDERED: ZOLPIDEM 5 MG TABLET. PO PRN (22:30)
[2020-06-04 23:00] VITALS: BP 133/66
[2020-06-05] VITALS (9 sets, daily range): BP systolic 123–158; BP diastolic 51–69
--- NOTE | 2020-06-05 04:36 | NUR ---
Pt. states she has pain but does not want to take any pain medication.
[2020-06-05] MEDS ORDERED: CLINDAMYCIN 900MG PREMIX 50 ML IV PRN (06:00)
[2020-06-05] MEDS ORDERED: PROCHLORPERAZINE 10 MG/2 ML VIAL. IV PRN (07:00)
[2020-06-05] MEDS ORDERED: ONDANSETRON PF 4 MG/2 ML VIAL. IV PRN (07:00)
[2020-06-05] MEDS ORDERED: IV RINGERS,LACTATED 1000ML 1,000 ML IV SCH (07:00)
[2020-06-05] MEDS ORDERED: LIDOCAINE 1% PF 2 ML VIAL. ID PRN (07:00)
[2020-06-05] MEDS ORDERED: HYDROmorphone 2 MG/ML VIAL IV PRN (07:00)
[2020-06-05] MEDS ORDERED: fentaNYL PF VIAL 100 MCG/2 ML VIAL IV PRN (07:00)
[2020-06-05] MEDS: BENZONATATE 100 MG CAPSULE. PO SCH ×2 (07:33→14:00)
[2020-06-05] MEDS: PSYLLIUM HUSK (SUGAR FREE) 1 PKT PACKET PO SCH (07:34)
[2020-06-05] MEDS ORDERED: ERTAPENEM 1 GM IV SCH (09:00)
[2020-06-05] MEDS ORDERED: LACTOBACILLUS RHAMNOSUS GG 1 CAPSULE. PO SCH (09:00)
[2020-06-05] MEDS ORDERED: PROPOFOL 10 MG/ML (20ML) VIAL. IV ONE (09:14)
[2020-06-05] MEDS ORDERED: fentaNYL PF VIAL 100 MCG/2 ML VIAL ONE ×2 (09:14→11:34)
[2020-06-05] MEDS ORDERED: LIDOCAINE 2% PF 5 ML VIAL. ONE (09:14)
[2020-06-05] MEDS ORDERED: BUPIVACAINE-EPI 0.25%-1:200000 MPF 30 ML VIAL. INJ ONE (09:30)
[2020-06-05] MEDS ORDERED: SEVOFLURANE 61 TO 120 MINUTES. IH ONE (10:37)
--- NOTE | 2020-06-05 11:18 | PDOC4 ---
Operative Note Operative Note Date of Procedure: June 05, 2020 Preoperative diagnosis: Colles' fracture of left radius, initial encounter for closed fracture S52.532A Postoperative diagnosis: same Procedure: left wrist, open treatment of distal radial extra-articular fracture, with internal fixation CPT 48671 Surgeon: Ele Gilman MD. Automobile Tester: HEENA Zayas Anesthesia Type: General EBL: 20 mL Specimens: none Drains: none Complications: none Tourniquet time: 21 minutes Tourniquet pressure: 250 mm Hg Implants: [place] VariAx 2 Distal Radius Plating System INDICATION FOR PROCEDURE: The patient is a 69 year-old who fell and had a displaced left distal radius fracture. I recommended open treatment with inter nal fixation. We talked about potential risks of surgery such as bleeding, infection, stiffness, need for hardware removal or other potential surgical or anesthetic complications. The patient stated understanding of the risks, benefits and alternatives. Written consent was obtained and she and her family desired to proceed with surgery. PROCEDURE IN DETAIL: The patient was identified in the preoperative holding area. The correct left wrist was marked by me. The patient was taken to the operating room, where a general anesthetic was used. Preoperative antibiotics were given intravenously. A timeout procedure was performed. Tourniquet was used on the upper left arm. The limb was prepared in sterile fashion with ChloraPrep, and sterile drapes were applied. An Esmarch bandage was used to exsanguinate the limb and the tourniquet was inflated. The volar approach of Dave was used distally. Sharp dissection was used and Bovie electrocautery was used as needed for hemostasis. The flexor carpi radialis tendon was retracted ulnarly to protect the median nerve. The brachioradialis was retracted radially to protect the radial artery. My tatiana pattit used small Hohmann retractors on the radial side of the distal fragment and ulnar side of the proximal fragment to help maintain reduction. A Weitlaner retractor was also placed. Subperiosteal dissection of the pronator quadratus was performed after an L incision was made and the muscle was reflected across the fracture site. The fracture was easily identified but markedly displaced, comminuted and unstable. Bone quality was so poor that K wires were removed manually. I performed a reduction first using a [place] elevator to disimpact the fragments, and using longitudinal traction, and volar to palmar compression, the fracture was able to be reduced as confirmed on the image intensifier. The reduction was stabilized with K wires prior to plate application. The small image intensifier device was used to check the reduction, and I used the image intensifier throughout the case and interpreted all of the images myself. I then applied the volar plate, placed a single nonlocking screw in the oval hole, and again checked the position of the plate on the image intensifier. I adjusted the plate as needed for satisfactory alignment and fixation. I placed a nonlocking screw distally to compress the plate to the bone. I placed additional locking screws distally and locking screws proximally and I confirmed the reduction with the image intensifier. Final locking screws were placed in the proximal portion of the plate, and into the shaft. After satisfactory reduction and satisfactory fixation with all the screws, final images were taken. Copious saline irrigation was used. The tourniquet was released and Bovie electrocautery was used for hemostasis. Bupivacaine 0.25% with epinephrine was injected. The incision was closed by me and by my mailing machine assistant with #2-0 Vicryl and#3-0 Vicryl in the subcutaneous tissues and #3-0 Prolene in the skin. Xeroform and a sterile dressing and a volar splint were applied. Needle and sponge counts were correct. There were no apparent complications. ELE GILMAN MD Jun 05, 2020 11:18
[2020-06-05] MEDS ORDERED: ONDANSETRON PF 4 MG/2 ML VIAL. IVP PRN (11:30)
[2020-06-05] MEDS ORDERED: fentaNYL PF VIAL 100 MCG/2 ML VIAL IVP PRN (11:30)
[2020-06-05] MEDS ORDERED: oxyCODONE/APAP 5/325 1 TAB TABLET PO PRN ×4 (11:30)
[2020-06-05] MEDS ORDERED: POLYETHYLENE GLYCOL 3350 17 GM PACKET. PO PRN (11:30)
[2020-06-05] MEDS ORDERED: DEXTROSE 50% 25 GM / 50ML DISP.SYRIN. IV PRN (11:30)
[2020-06-05] MEDS: fentaNYL PF VIAL 100 MCG/2 ML VIAL IV PRN ×2 (11:38→11:53)
[2020-06-05] MEDS ORDERED: SENNOSIDES/DOCUSATE 8.6/50MG TABLET. PO SCH (12:00)
[2020-06-05] MEDS ORDERED: MORPHINE SULFATE 2 MG/ML VIAL. ONE (12:07)
--- NOTE | 2020-06-05 12:31 | PDOC ---
Provider Note Date of Service: DATE: 06/05/20 TIME: 12:30 Provider Note She may be discharged to home later today for my standpoint. Office follow-up in 10 to 14 days. Keep the splint intact and dry. I sent prescriptions for Percocet, promethazine, and vitamin D3 to [facility]. Justifications for Admission Other Justification ELE STERN MD Jun 05, 2020 12:31
[2020-06-05] MEDS: MORPHINE SULFATE 2 MG/ML VIAL. IV PRN ×2 (12:37→12:56)
[2020-06-05] MEDS ORDERED: CLINDAMYCIN 900MG PREMIX 50 ML IV SCH (16:00)
--- NOTE | 2020-06-05 19:37 | PDOC3 ---
Discharge Summary Visit Information Date of Admission: Jun 04, 2020 Date of Discharge: Jun 05, 2020 Admitting Diagnosis Comment: Comminuted distal radial metaphyseal fracture. Dyslipidemia Final Diagnosis Problems Medical Problems: (1) Wrist fracture Status: Acute Comminuted distal radial metaphyseal fracture. Dyslipidemia Brief Hospital Course Allergies Allergies Coded Allergies Type Severity Reaction Last Updated Verified I S O L A T I O N *CONTACT* Allergy Unknown 06/05/20 Yes Penicillins Allergy Unknown 06/05/20 Yes Vital Signs Vital Signs Date Time Temp Pulse Resp B/P (MAP) Pulse Ox O2 Delivery O2 Flow Rate FiO2 06/05/20 14:59 Room Air 06/05/20 14:49 97.9 71 18 130/52 (78) 96 97.9 06/05/20 12:56 10.0 Lab Results Laboratory Tests Test 06/04/20 12:08 06/04/20 12:20 White Blood Count 5.6 x10^3/uL (4.0-11.0) Red Blood Count 3.85 x10^6/uL (3.50-5.40) Hemoglobin 12.2 g/dL (12.0-15.5) Hematocrit 36.3 % (36.0-47.0) Mean Corpuscular Volume 94 fL (79-100) Mean Corpuscular Hemoglobin 32 pg (25-35) Mean Corpuscular Hemoglobin Concent 34 g/dL (31-37) Red Cell Distribution Width 14.4 % (11.5-14.5) Platelet Count 159 x10^3/uL (140-400) Neutrophils (%) (Auto) 67 % (31-73) Lymphocytes (%) (Auto) 25 % (24-48) Monocytes (%) (Auto) 6 % (0-9) Eosinophils (%) (Auto) 2 % (0-3) Basophils (%) (Auto) 0 % (0-3) Neutrophils # (Auto) 3.8 x10^3/uL (1.8-7.7) Lymphocytes # (Auto) 1.4 x10^3/uL (1.0-4.8) Monocytes # (Auto) 0.3 x10^3/uL (0.0-1.1) Eosinophils # (Auto) 0.1 x10^3/uL (0.0-0.7) Basophils # (Auto) 0.0 x10^3/uL (0.0-0.2) Sodium Level 140 mmol/L (136-145) Potassium Level 4.1 mmol/L (3.5-5.1) Chloride Level 106 mmol/L (98-107) Carbon Dioxide Level 25 mmol/L (21-32) Anion Gap 9 (6-14) Blood Urea Nitrogen 25 mg/dL (7-20) Creatinine 0.7 mg/dL (0.6-1.0) Estimated GFR (Cockcroft-Gault) 82.5 BUN/Creatinine Ratio 36 (6-20) Glucose Level 94 mg/dL (70-99) Calcium Level 8.5 mg/dL (8.5-10.1) Total Bilirubin 0.4 mg/dL (0.2-1.0) Aspartate Amino Transf (AST/SGOT) 25 U/L (15-37) Alanine Aminotransferase (ALT/SGPT) 35 U/L (14-59) Alkaline Phosphatase 45 U/L (46-116) Total Protein 6.0 g/dL (6.4-8.2) Albumin 3.4 g/dL (3.4-5.0) Albumin/Globulin Ratio 1.3 (1.0-1.7) SARS-CoV-2 Antigen (Rapid) Negative (NEGATIVE) Brief Hospital Course History of Present Illness 69-year-old female with no significant past medical history other than dyslipidemia who was in her usual state of health until today when she suffered a stumble and fall from own height. The patient landed on her outstretched arm and suffered a wrist fracture She has aComminuted distal radial metaphyseal fracture. She is being admitted at the request of the ER for definitive treatment. The time my evaluation the patient is only complaint is pain over the affected area. She denied any lightheadedness no chest pain or palpitations prior to the event. She did not lose consciousness she did not hit pavement with her head and CT scan of the head was unremarkable. Plan of care has been explained detail and no other concerns were voiced by the patient. Denies any headache blurred vision no dysphagia odynophagia no slurred speech no neurological deficits no chest pain palpitations shortness of breath she denies any paroxysmal nocturnal dyspnea no orthopnea no recent angina type of symptoms no nausea vomiting diarrhea no abdominal pain no urinary symptoms and no peripheral edema were noted. Patient underwent open reduction internal fixation as follows: Operative Note Date of Procedure: June 05, 2020 Preoperative diagnosis: Colles' fracture of left radius, initial encounter for closed fracture S52.532A Postoperative diagnosis: same Procedure: left wrist, open treatment of distal radial extra-articular fracture, with internal fixation CPT 75979 Surgeon: Barrera Gilman MD. Front Office Developer: HEENA Zayas Anesthesia Type: General EBL: 20 mL Specimens: none Drains: none Complications: none Tourniquet time: 21 minutes Tourniquet pressure: 250 mm Hg Implants: [place] VariAx 2 Distal Radius Plating System INDICATION FOR PROCEDURE: The patient is a 69 year-old who fell and had a displaced left distal radius fracture. I recommended open treatment with internal fixation. We talked about potential risks of surgery such as bleeding, infection, stiffness, need for hardware removal or other potential surgical or anesthetic complications. The patient stated understanding of the risks, benefits and alternatives. Written consent was obtained and she and her family desired to proceed with surgery. PROCEDURE IN DETAIL: The patient was identified in the preoperative holding area. The correct left wrist was marked by me. The patient was taken to the operating room, where a general anesthetic was used. Preoperative antibiotics were given intravenously. A timeout procedure was performed. Tourniquet was used on the upper left arm. The limb was prepared in sterile fashion with ChloraPrep, and sterile drapes were applied. An Esmarch bandage was used to exsanguinate the limb and the tourniquet was inflated. The volar approach of Dave was used distally. Sharp dissection was used and Bovie electrocautery was used as needed for hemostasis. The flexor carpi radialis tendon was retracted ulnarly to protect the median nerve. The brachioradialis was retracted radially to protect the radial artery. My chemical laboratory assistant used small Hohmann retractors on the radial side of the distal fragment and ulnar side of the proximal fragment to help maintain reduction. A Weitlaner retractor was also placed. Subperiosteal dissection of the pronator quadratus was performed after an L incision was made and the muscle was reflected across the fracture site. The fracture was easily identified but markedly displaced, comminuted and unstable. Bone quality was so poor that K wires were removed manually. I performed a reduction first using a [place] elevator to disimpact the fragments, and using longitudinal traction, and volar to palmar compression, the fracture was able to be reduced as confirmed on the image intensifier. The reduction was stabilized with K wires prior to plate application. The small image intensifier device was used to check the reduction, and I used the image intensifier throughout the case and interpreted all of the images myself. I then applied the volar plate, placed a single nonlocking screw in the oval hole, and again checked the position of the plate on the image intensifier. I adjusted the plate as needed for satisfactory alignment and fixation. I placed a nonlocking screw distally to compress the plate to the bone. I placed additional locking screws distally and locking screws proximally and I confirmed the reduction with the image intensifier. Final locking screws were placed in the proximal portion of the plate, and into the shaft. After satisfactory reduction and satisfactory fixation with all the screws, final images were t aken. Copious saline irrigation was used. The tourniquet was released and Bovie electrocautery was used for hemostasis. Bupivacaine 0.25% with epinephrine was injected. The incision was closed by me and by my chemical laboratory assistant with #2-0 Vicryl and#3-0 Vicryl in the subcutaneous tissues and #3-0 Prolene in the skin. Xeroform and a sterile dressing and a volar splint were applied. Needle and sponge counts were correct. There were no apparent complications. She recovered well and had no complications. She was deemed appropriate for discharge by Dr. Pulido who will follow her up in 14 days. Signs and symptoms of concern when to seek medical attention were discussed with patient prior to discharge Physical exam: Lungs clear to auscultation bilaterally with good inspiratory effort CVS: S1-S2 regular rhythm no murmurs gallops or rubs Assessment Assessment IMAGING REPORT Signed PATIENT: ISAI SIMMS DACCOUNT: [id number] : 1950 LOCATION: ER AGE: 69 SEX: F EXAM STATUS: PRE ER ORD. PHYSICIAN: SAHRA DUENAS MD REASON: left wrist pain with deformity PROCEDURE: WRIST 3V LEFT EXAM: Left wrist, 3 views. HISTORY: Pain. COMPARISON: None. FINDINGS: 3 views of the left wrist are obtained. There is a comminuted displaced and angulated distal radial metaphyseal fracture with dorsal inclination of the distal radial articular surface. No additional fracture is seen. There is soft tissue swelling. IMPRESSION: Comminuted distal radial metaphyseal fracture. Electronically signed by: Lin Sweet MD (06/04/2020 10:01 AM) [id number] Discharge Information Condition at Discharge: Improved Follow Up: Weeks Disposition/Orders: D/C to Home Scheduled Benzonatate (Tessalon Perle) 100 Mg Capsule, 1 CAP PO TID, #30 Prescribed by: HAKEEM CAIN APRN on 07/13/19 1044 Last Action: Continued on 06/04/20 162 by BOB ALEXANDER MD Discontinued Medications Ertapenem Sodium (Invanz) 1 Gm Vial, 1 GM IV DAILY for infection, (Reported) Entered as Reported by: HERLINDA BAUTISTA on 12/24/18 1513 Last Action: Continued on 06/04/20 1620 by BOB ALEXANDER MD Lactobacillus Rhamnosus Gg (Culturelle) 1 Each Cap.sprink, 1 EACH PO DAILY for probiotic, (Reported) Entered as Reported by: HERLINDA BAUTISTA on 12/24/18 1513 Last Action: Continued on 06/04/20 162 by BOB ALEXANDER MD Methylprednisolone (Medrol) 4 Mg Tab.ds.pk, 1 PKG PO UD, #1 Prescribed by: HAKEEM CAIN APRN on 07/13/19 1044 Last Action: HELD on 06/04/20 161 by BOB ALEXANDER MD Justicifation of Admission Dx: Justifications for Admission: Justification of Admission Dx: Yes Fracture: Fracture BOB ALEXANDER MD Jun 05, 2020 19:37
[2020-06-05] MEDS ORDERED: NYSTATIN 100,000 UNIT/GM TOPICAL CREAM 15GM TUBE. TP SCH (21:00)
[2020-06-06] MEDS ORDERED: MAGNESIUM HYDROXIDE 2,400 MG/30 ML ORAL.SUSP. PO PRN (06:00)
[2020-06-06] MEDS ORDERED: BISACODYL 10 MG SUPP.RECT. PR PRN (16:00)
== END 2020-06-05 16:10 | disposition home or self-care (01) | DRG 512 ==
LOC: ER 09:16 → 4 NORTH 12:11
PROVIDERS: ADMIT Internal Medicine; ATTEND Internal Medicine
PROC: 2W39X1Z Immobilization of Left Upper Extremity using Splint (ICD-10-PCS; 2020-06-05)
PROC: 0PSJ04Z Reposition Left Radius with Internal Fixation Device, Open Approach (ICD-10-PCS; principal; 2020-06-05 10:00)
DX: S52.532A Colles' fracture of left radius, initial encounter for closed fracture (principal); S52.552A Other extraarticular fracture of lower end of left radius, initial encounter for closed fracture; Z82.49 Family history of ischemic heart disease and other diseases of the circulatory system; Z87.891 Personal history of nicotine dependence; W00.0XXA Fall on same level due to ice and snow, initial encounter; I10 Essential (primary) hypertension; E78.5 Hyperlipidemia, unspecified; E11.9 Type 2 diabetes mellitus without complications; X58.XXXA Exposure to other specified factors, initial encounter; Y93.89 Activity, other specified; Y92.89 Other specified places as the place of occurrence of the external cause; Y99.8 Other external cause status; Z20.822 Contact with and (suspected) exposure to COVID-19
CPT/HCPCS: 36415; 70450; 73110; 80053; 82306; 85025; 87426; 96361; 96374; 96375; 96376; 99285; A4565; C1713; J1170; J2270; J2405; J2704; J3010; J3490; J7030; J7120; U0003; G0378

== ENCOUNTER → 2020-09-24 | Outpatient (CLI) | payer OTHER, MEDICAID ==
[2020-06-05 14:49] VITALS: BP 130/52
--- NOTE | 2020-09-24 10:05 | RAD ---
EXAM: Chest, 2 views. HISTORY: Pain. COMPARISON: None. FINDINGS: 2 views of the chest are obtained. There is bilateral suprahilar predominant interstitial i nfiltrate likely superimposed on chronic interstitial changes. There is no consolidation, pleural eff usion or pneumothorax. The heart is normal in size. IMPRESSION: Suspected bilateral suprahilar predominant diffuse interstitial infiltrate superimposed o n chronic interstitial changes. Electronically signed by: Lin Sweet MD (09/24/2020 10:02 AM) [id number]
== END ==
LOC: RAD 08:58
PROVIDERS: ATTEND Nurse Practitioner Gerontology
DX: R07.89 Other chest pain (principal)
CPT/HCPCS: 71046

== ENCOUNTER → 2020-09-29 | Outpatient (CLI) | payer OTHER, MEDICAID ==
[2020-06-05 14:49] VITALS: BP 130/52
--- NOTE | 2020-09-29 17:44 | RAD ---
XR EXAM OF ANKLE_LEFT 3V DATE: 09/29/2020 11:49 AM INDICATION: PAIN / Spl. Instructions: / History: COMPARISON: None. FINDINGS: Bones: There is no evidence of acute fracture or dislocation. Joints: The ankle mortise is congruent. No widening of the distal tibiofibular syndesmosis. Miscellaneous: None. IMPRESSION: No evidence of acute fracture. Electronically signed by: Lucio Villa MD (09/29/2020 5:42 PM) [id number]
== END ==
LOC: RAD 11:35
PROVIDERS: ATTEND Family Medicine
DX: M25.572 Pain in left ankle and joints of left foot (principal)
CPT/HCPCS: 73610

== ENCOUNTER → 2020-12-16 | Outpatient (CLI) | payer OTHER, MEDICAID ==
[2020-06-05 14:49] VITALS: BP 130/52
--- NOTE | 2020-12-16 17:35 | KCIC ---
MRI of the lumbar spine without contrast 12/16/2020 CLINICAL HISTORY: Low back pain which radiates down the left leg. TECHNIQUE: Unenhanced T1-weighted and T2-weighted sagittal and axial and inversion recovery sagittal images of the lumbar spine were obtained. FINDINGS: Comparison study is dated 02/19/2019. Mild S-shaped curvature of the thoracolumbar spine is seen. Degenerative signal changes are seen invo lving all of the disks of the lumbar spine. Degenerative signal changes are seen within the marrow barbour rrounding these discs. The conus medullaris is normal morphology, position, and signal characteristic s. Rounded high signal intensity lesions are seen scattered throughout both kidneys on the T2-weighte d images. These measure 1 to 6 cm in size. They likely represent cysts. No further imaging evaluation is recommended. At the L1-2 disc space is a moderate generalized disc bulge. Superimposed on this disc bulge is a rig ht paracentral focal disc protrusion which extrudes slightly superiorly. It measures [address] AP [address]ame ter. Degenerative changes are seen involving the facet joints bilaterally. There is mild to moderate ligamentum flavum hypertrophy bilaterally. There are small facet joint effusions bilaterally. These f indings when combined result in mild to moderate right greater than left central spinal canal stenosi s. Mild right greater than left neural foraminal stenosis is seen. At the L2-3 disc space there is a mild to moderate generalized disc bulge. Superimposed on this disc bulge is a left paracentral/lateral focal disc protrusion. This measures 4 mm in AP diameter. Degener ative changes are seen involving the facet joints bilaterally. There is moderate ligamentum flavum hy pertrophy bilaterally. These findings when combined result in mild central spinal canal stenosis mild bilateral neural foraminal stenosis is seen. At the L3-4 disc space there is a mild to moderate generalized disc bulge. Degenerative changes are s een involving the facet joints bilaterally. There is moderate ligamentum flavum hypertrophy bilateral ly. These findings when combined result in mild to moderate central spinal canal stenosis. No neural foraminal stenosis is seen. At the L4-5 disc space there is a moderate generalized disc bulge. Superimposed on this disc bulge is a central/right paracentral focal disc protrusion. This measures 3 mm in AP diameter. Degenerative c hanges are seen involving the facet joints bilaterally. There is moderate ligamentum flavum hypertrop hy bilaterally. These findings when combined result in mild to moderate central spinal canal stenosis . Mild bilateral neural foraminal stenosis is seen. The L5-S1 disc space there is a mild generalized disc bulge. Degenerative changes are seen involving the facet joints bilaterally. These findings when combined do not result in significant central spina l canal or neural foraminal stenosis. The degenerative changes have progressed slightly since the previous examination. IMPRESSION: The changes of degenerative disc disease are seen throughout the lumbar spine. These find ings result in mild to moderate right greater than left central spinal canal stenosis at L1-2, mild c entral spinal canal stenosis at L2-3, and mild to moderate central spinal canal stenosis at L3-4 and L4-5. Mild right greater than left neural foraminal stenosis is seen at L1-2. Mild bilateral neural f oraminal stenosis is seen at L2-3 and L4-5. Electronically signed by: Harman French MD (12/16/2020 5:33 PM) [id number]
== END ==
LOC: KCIC MRI 14:30
PROVIDERS: ATTEND Family Medicine
DX: M47.27 Other spondylosis with radiculopathy, lumbosacral region (principal); M51.17 Intervertebral disc disorders with radiculopathy, lumbosacral region; M48.061 Spinal stenosis, lumbar region without neurogenic claudication; M43.8X5 Other specified deforming dorsopathies, thoracolumbar region
CPT/HCPCS: 72148

== ENCOUNTER → 2021-03-04 | Outpatient (CLI) | payer OTHER, MEDICAID ==
[2020-06-05 14:49] VITALS: BP 130/52
--- NOTE | 2021-03-04 11:35 | RAD ---
EXAM: Thoracic spine, 3 views. HISTORY: Pain. COMPARISON: None. FINDINGS: 3 views of the thoracic spine are obtained. There is S-shaped thoracolumbar scoliosis, with dextrocurvature centered at the mid thoracic levels and levocurvature centered at the mid lumbar lev els. There is thoracic kyphosis. There is multilevel endplate remodeling and anterior spurring primar dioni at the lower thoracic and upper lumbar levels. There is slight retrolisthesis of L1 on L2. IMPRESSION: 1. S-shaped thoracolumbar scoliosis and mild multilevel endplate change, primarily at the thoracolumb ar junction. 2. No acute osseous finding. Electronically signed by: Lin Sweet MD (03/04/2021 11:32 AM) [id number]
== END ==
LOC: RAD 10:16
PROVIDERS: ATTEND Family Medicine
DX: M41.85 Other forms of scoliosis, thoracolumbar region (principal); M43.8X4 Other specified deforming dorsopathies, thoracic region; M43.16 Spondylolisthesis, lumbar region
CPT/HCPCS: 72072

== ENCOUNTER 2021-03-08 11:23 | Emergency (ER) | payer OTHER, MEDICAID ==
[~2021-03-08] VITALS: Ht 154.9 cm; Wt 72.0 kg
[2021-03-08] MEDS ORDERED: IBUPROFEN 200 MG TABLET. PO ONE (12:15)
[2021-03-08] MEDS ORDERED: traMADol 50 MG TABLET PO ONE (12:15)
--- NOTE | 2021-03-08 12:40 | PHYS DOC ---
Past Medical History Past Surgical History: No Surgical History Smoking Status: Never Smoker Alcohol Use: None General Adult EDM: Chief Complaint: FOOT INJURY PAIN HPI: HPI: Patient is a 70 year old female who presents with 3-day history of left ankle pain. Patient rates her pain 10/10 without radiation to the medial aspect of her left ankle. She denies any injury or trauma to the joint. She is able to ambulate but with pain and very slowly. The only chronic medical problem the patient reports is arthritis, for which she takes 600 mg ibuprofen and 500 mg tramadol each day. Her last dose was last night. She denies fever, chills, night sweats, chest pain, palpitations, shortness of breath, cough. She has no other complaints at this time. Review of Systems: Review of Systems: Constitutional: See HPI HEENT: Denies change in visual acuity, ear pain, nasal congestion. Respiratory: See HPI Cardiovascular: See HPI Musculoskeletal: See HPI Integument: See HPI Neurologic: Denies headache, focal weakness or sensory changes. Endocrine: Denies polyuria or polydipsia. Lymphatic: Denies swollen glands. Psychiatric: Denies depression or anxiety. Heart Score: C/O Chest Pain: No Current Medications: Current Medications Medications (Trade) Dose Ordered Sig/Samir Start Time Stop Time Status Last Admin Dose Admin Ibuprofen (Motrin) 600 mg 1X ONCE 03/08/21 12:15 03/08/21 12:16 UNV Tramadol HCl (Ultram) 50 mg 1X ONCE 03/08/21 12:15 03/08/21 12:16 UNV Allergies: Allergies: Allergies Coded Allergies Type Severity Reaction Last Updated Verified I S O L A T I O N *CONTACT* Allergy Unknown 06/05/20 Yes Penicillins Allergy Unknown 06/05/20 Yes Physical Exam: PE: Constitutional: Well developed, well nourished, no acute distress, non-toxic appearance. Cardiovascular: Heart rate regular rhythm, no murmur. Lungs & Thorax: Bilateral breath sounds clear to auscultation. Skin: 3 cm x 2 cm area of ecchymosis proximal to the ankle. Diffuse ecchymosis/petechiae to the medial aspect of left ankle. Skin otherwise warm, dry, no erythema, no rash. Back: No step-offs no bony tenderness, no paraspinal tenderness, no CVA tenderness. Extremities: Left ankle with moderate swelling and tenderness to the medial malleoli are area, foot dorsiflexion limited secondary to pain. Extremities otherwise no tenderness, no cyanosis, no clubbing, ROM intact, no edema. Neurologic: Alert and oriented x3, normal motor function, normal sensory function, no focal deficits noted. Psychologic: Affect normal, good judgment, mood normal. Current Patient Data: Labs: Laboratory Tests Test 03/08/21 12:39 White Blood Count 6.2 x10^3/uL (4.0-11.0) Red Blood Count 4.18 x10^6/uL (3.50-5.40) Hemoglobin 13.3 g/dL (12.0-15.5) Hematocrit 39.4 % (36.0-47.0) Mean Corpuscular Volume 94 fL (79-100) Mean Corpuscular Hemoglobin 32 pg (25-35) Mean Corpuscular Hemoglobin Concent 34 g/dL (31-37) Red Cell Distribution Width 14.1 % (11.5-14.5) Platelet Count 194 x10^3/uL (140-400) Neutrophils (%) (Auto) 61 % (31-73) Lymphocytes (%) (Auto) 30 % (24-48) Monocytes (%) (Auto) 6 % (0-9) Eosinophils (%) (Auto) 3 % (0-3) Basophils (%) (Auto) 1 % (0-3) Neutrophils # (Auto) 3.8 x10^3/uL (1.8-7.7) Lymphocytes # (Auto) 1.8 x10^3/uL (1.0-4.8) Monocytes # (Auto) 0.4 x10^3/uL (0.0-1.1) Eosinophils # (Auto) 0.2 x10^3/uL (0.0-0.7) Basophils # (Auto) 0.0 x10^3/uL (0.0-0.2) Prothrombin Time 13.4 SEC (11.7-14.0) Prothromb Time International Ratio 1.0 (0.8-1.1) Activated Partial Thromboplast Time 27 SEC (24-38) Sodium Level 139 mmol/L (136-145) Potassium Level 4.3 mmol/L (3.5-5.1) Chloride Level 107 mmol/L (98-107) Carbon Dioxide Level 25 mmol/L (21-32) Anion Gap 7 (6-14) Blood Urea Nitrogen 19 mg/dL (7-20) Creatinine 0.7 mg/dL (0.6-1.0) Estimated GFR (Cockcroft-Gault) 82.3 Glucose Level 99 mg/dL (70-99) Calcium Level 8.2 mg/dL (8.5-10.1) C-Reactive Protein, Quantitative 8.9 mg/L (0-3.3) Vital Signs: Vital Signs Date Time Temp Pulse Resp B/P (MAP) Pulse Ox O2 Delivery O2 Flow Rate FiO2 03/08/21 11:45 97.1 77 16 125/67 (86) 96 97.1 Radiology/Procedures: Radiology/Procedures: PROCEDURE: ANKLE LEFT 3V XR EXAM OF ANKLE_LEFT 3V History: Pain Comparison: 09/29/2020 Technique: 3 views the left ankle Findings: Osseous mineralization is normal. No fracture or dislocaton. Ankle mortise and talar dome are intact. Nonweightbearing suggestion of pes planus. Degenerative changes of the dorsal midfoot. Plantar calcaneal enthesophyte. No focal soft tissue swelling. Impression: 1. No acute osseous abnormality of the left ankle. 2. Nonweightbearing suggestion of pes planus. Electronically signed by: Alfred Davey MD (03/08/2021 1:03 PM) [id number] Course & Med Decision Making: Course & Med Decision Making Pertinent Labs and Imaging studies reviewed. (See chart for details) Because patient denies any injury or trauma to the ankle, but the joint is swollen and ecchymotic, lab work and x-rays will be ordered to evaluate source of joint pain. No fractures are seen on x-ray, however pes planus observed. Patient should be nonweightbearing until she follows up with podiatry. Additionally, she should follow with her primary doctor regarding her elevated CRP for further evaluation. Patient understands and is agreeable to discharge plan. [place] Disclaimer: April Disclaimer: This electronic medical record was generated, in whole or in part, using a voice recognition dictation system. Departure Departure Impression: Primary Impression: Pes planus Qualified Codes: M21.40 - Flat foot [pes planus] (acquired), unspecified foot Additional Impressions: Elevated C-reactive protein (CRP) Arthritis Disposition: HOME / SELF CARE / HOMELESS Condition: STABLE Referrals: CORRIE WILHELM MD (PCP) HENOK VICK DPM Patient Instructions: Arthritis, Nonspecific, Uclr-be-Ryig, C-Reactive Protein Test (CRP), Flat Feet Additional Instructions: In your work-up today, no fractures were seen to your left ankle. However, your x-rays did show that you have "pes planus," which is flatfeet. You should not bear weight on your foot with pain until you are cleared by podiatry. Contact information is provided to you. In your blood work today, your Creactive protein (and inflammatory marker) was elevated. You may follow-up with your primary care provider for further evaluation. You may continue taking your at home ibuprofen and tramadol for pain control. Please return to the emergency department if your pain is unmanageable at home or you develop new symptoms. EDNA CARO Mar 08, 2021 12:40
[2021-03-08 12:46] LABS: BASO % 1 % (0-3); EOS # 0.2 x10^3/uL (0.0-0.7); EOS % 3 % (0-3); HEMATOCRIT 39.4 % (36.0-47.0); HEMOGLOBIN 13.3 g/dL (12.0-15.5); LYMPH # 1.8 x10^3/uL (1.0-4.8); LYMPH % 30 % (24-48); MEAN CORPUSCULAR HEMOGLOBIN 32 pg (25-35); MEAN CORPUSCULAR HGB CONC 34 g/dL (31-37); MEAN CORPUSCULAR VOLUME 94 fL (79-100); MONO # 0.4 x10^3/uL (0.0-1.1); MONO % 6 % (0-9); NEUT # 3.8 x10^3/uL (1.8-7.7); NEUT % 61 % (31-73); PLATELET COUNT 194 x10^3/uL (140-400); RED BLOOD COUNT 4.18 x10^6/uL (3.50-5.40); RED CELL DISTRIBUTION WIDTH 14.1 % (11.5-14.5); WHITE BLOOD COUNT 6.2 x10^3/uL (4.0-11.0)
[2021-03-08 12:52] LABS: CALCIUM 8.2 mg/dL (8.5-10.1); CREATININE 0.7 mg/dL (0.6-1.0); GFR 82.3; POTASSIUM 4.3 mmol/L (3.5-5.1)
[2021-03-08 12:55] LABS: C-REACTIVE PROTEIN 8.9 mg/L (0-3.3)
[2021-03-08 12:57] LABS: PROTHROMBIN TIME PATIENT 13.4 SEC (11.7-14.0)
--- NOTE | 2021-03-08 13:05 | RAD ---
XR EXAM OF ANKLE_LEFT 3V History: Pain Comparison: 09/29/2020 Technique: 3 views the left ankle Findings: Osseous mineralization is normal. No fracture or dislocaton. Ankle mortise and talar dome are intact. Nonweightbearing suggestion of pes planus. Degenerative changes of the dorsal midfoot. Plantar calca skip enthesophyte. No focal soft tissue swelling. Impression: 1. No acute osseous abnormality of the left ankle. 2. Nonweightbearing suggestion of pes planus. Electronically signed by: Alfred Davey MD (03/08/2021 1:03 PM) [id number]
[2021-03-08 14:37] VITALS: BP 128/64
== END 2021-03-08 14:39 | disposition home or self-care (01) ==
LOC: ER 11:23
DX: M21.42 Flat foot [pes planus] (acquired), left foot (principal); R79.82 Elevated C-reactive protein (CRP); M19.072 Primary osteoarthritis, left ankle and foot; Z88.0 Allergy status to penicillin; Z91.041 Radiographic dye allergy status
CPT/HCPCS: 36415; 73610; 80048; 85025; 85610; 85730; 86140; 99284

== ENCOUNTER → 2021-03-14 | Outpatient (CLI) | payer OTHER, MEDICAID ==
[2021-03-08 14:37] VITALS: BP 128/64
--- NOTE | 2021-03-14 13:37 | RAD ---
INDICATION: Reason: LT FOOT PAIN / Spl. Instructions: / History: COMPARISON: None. TECHNIQUE: Grayscale, color and doppler ultrasound images were obtained of the left lower extremity v enous vasculature. LEFT: No thrombus identified in the common femoral vein, femoral vein, popliteal vein. Thrombus seen at pos terior tibial vein IMPRESSION: * Left posterior tibial vein thrombus. Ordering provider was given preliminary report from the sono grapher who performed the exam. Electronically signed by: Nolberto Ann MD (03/14/2021 1:35 PM) [id number]
== END ==
LOC: US 12:13
PROVIDERS: ATTEND Podiatrist
DX: I82.442 Acute embolism and thrombosis of left tibial vein (principal)
CPT/HCPCS: 93971

== ENCOUNTER → 2021-06-22 | Outpatient (CLI) | payer OTHER, MEDICAID ==
--- NOTE | 2021-06-22 11:42 | RAD ---
EXAM: Left lower extremity venous Doppler sonogram. HISTORY: DVT. TECHNIQUE: Forbes scale and color Doppler sonographic evaluation of the left lower extremity veins with spectral waveform analysis was performed. FINDINGS: There is normal color flow, normal compressibility and there are normal spectral waveforms in the common femoral, superficial femoral, popliteal, posterior tibial and greater saphenous veins. IMPRESSION: 1. No Doppler evidence of lower extremity deep venous thrombosis. 2. The previously demonstrated left posterior tibial venous thrombosis is no longer seen. Electronically signed by: Lin Sweet MD (06/22/2021 11:40 AM) [id number]
== END ==
LOC: US 10:58
PROVIDERS: ATTEND Family Medicine
DX: I82.442 Acute embolism and thrombosis of left tibial vein (principal)
CPT/HCPCS: 93971

== ENCOUNTER → 2021-08-08 | Outpatient (CLI) | payer OTHER, MEDICAID ==
--- NOTE | 2021-08-08 14:33 | RAD ---
EXAM: Pelvis, single view. HISTORY: Pain. COMPARISON: None. FINDINGS: A frontal view of the pelvis is obtained. There is no fracture, dislocation or subluxation. The femoral heads are normal in configuration. There is degenerative change at the lower lumbar leve ls. IMPRESSION: No acute osseous finding. Electronically signed by: Lin Sweet MD (08/08/2021 2:31 PM) [id number]
== END ==
LOC: RAD 13:57
PROVIDERS: ATTEND Nurse Practitioner
DX: R10.2 Pelvic and perineal pain (principal); M47.816 Spondylosis without myelopathy or radiculopathy, lumbar region
CPT/HCPCS: 72170

== ENCOUNTER 2021-08-11 18:58 | Emergency (ER) | payer OTHER, MEDICAID ==
[~2021-08-11] VITALS: Ht 152.4 cm; Wt 76.0 kg
[2021-08-11 19:34] LABS: BASO % 1 % (0-3); EOS # 0.2 x10^3/uL (0.0-0.7); EOS % 3 % (0-3); HEMATOCRIT 38.1 % (36.0-47.0); HEMOGLOBIN 12.8 g/dL (12.0-15.5); LYMPH # 2.2 x10^3/uL (1.0-4.8); LYMPH % 41 % (24-48); MEAN CORPUSCULAR HEMOGLOBIN 31 pg (25-35); MEAN CORPUSCULAR HGB CONC 34 g/dL (31-37); MEAN CORPUSCULAR VOLUME 94 fL (79-100); MONO # 0.4 x10^3/uL (0.0-1.1); MONO % 8 % (0-9); NEUT # 2.6 x10^3/uL (1.8-7.7); NEUT % 48 % (31-73); PLATELET COUNT 221 x10^3/uL (140-400); RED BLOOD COUNT 4.07 x10^6/uL (3.50-5.40); RED CELL DISTRIBUTION WIDTH 13.1 % (11.5-14.5); WHITE BLOOD COUNT 5.4 x10^3/uL (4.0-11.0)
[2021-08-11 19:44] LABS: CALCIUM 8.9 mg/dL (8.5-10.1); GFR 54.5; POTASSIUM 3.9 mmol/L (3.5-5.1)
[2021-08-11 19:50] LABS: ALBUMIN/GLOBULIN RATIO 1.1 (1.0-1.7); TOTAL BILIRUBIN 0.3 mg/dL (0.2-1.0); TOTAL PROTEIN 7.6 g/dL (6.4-8.2)
--- NOTE | 2021-08-11 20:27 | RAD ---
Bilateral lower extremity venous Doppler ultrasound History: Reason: BLE numbness, hx of DVT LLE Comparison: None. Procedure: Color flow Doppler, Doppler spectral analysis, and 2D images are obtained with and without compression in the area of the common femoral vein, superficial femoral vein - femoral vein junction , main femoral vein (superficial femoral vein) and popliteal vein. Veins of the proximal calf are als o imaged. Findings: There is normal color flow, augmentation, and compressibility of all visualized vein segments. No gifty dence of deep venous thrombus is present. IMPRESSION: No evidence of right or left lower extremity deep venous thrombosis. Electronically signed by: Ari Cedillo MD (08/11/2021 8:25 PM) [facility]
[2021-08-11 22:00] VITALS: BP 142/81
[2021-08-11] MEDS ORDERED: GABA300C18 PO (22:13)
--- NOTE | 2021-08-11 22:13 | PHYS DOC ---
Past Medical History Past Surgical History: No Surgical History Smoking Status: Never Smoker Alcohol Use: None General Adult EDM: Chief Complaint: LOWER EXT PAIN HPI: HPI: Patient is a 70 year old female with history of DVT to the left lower extremity presenting today complaining of moderate intermittent bilateral lower extremity pain and swelling, symptoms have been going on for almost 2 months. Patient states she has been following up with her own PCP who is not doing anything for her symptoms. She states she used to be on a blood thinner for DVT to the left lower extremity but stopped taking the medications a month ago. Patient denies any chest pain, shortness of breath. Son states patient has been using marijuana that he brings from [place] and this relieves her pain, son states pain is worse on ambulation. Review of Systems: Review of Systems: Constitutional: Denies fever or chills. [] Eyes: Denies change in visual acuity. [] HENT: Denies nasal congestion or sore throat. [] Respiratory: Denies cough or shortness of breath. [] Cardiovascular: Denies chest pain or edema. [] GI: Denies abdominal pain, nausea, vomiting, bloody stools or diarrhea. [] : Denies dysuria. [] Musculoskeletal: Reports bilateral lower extremity pain and swelling Integument: Denies rash. [] Neurologic: Denies headache, focal weakness or sensory changes. [] Psychiatric: Denies depression or anxiety. [] Heart Score: C/O Chest Pain: N/A Risk Factors: Risk Factors: DM, Current or recent (<one month) smoker, HTN, HLP, family history of CAD, obesity. Risk Scores: Score 0 - 3: 2.5% MACE over next 6 weeks - Discharge Home Score 4 - 6: 20.3% MACE over next 6 weeks - Admit for Clinical Observation Score 7 - 10: 72.7% MACE over next 6 weeks - Early Invasive Strategies Allergies: Allergies: Allergies Coded Allergies Type Severity Reaction Last Updated Verified I S O L A T I O N *CONTACT* Allergy Unknown 06/05/20 Yes Penicillins Allergy Unknown 06/05/20 Yes Physical Exam: PE: Constitutional: Well developed, well nourished, no acute distress, non-toxic appearance. [] HENT: Normocephalic, atraumatic, bilateral external ears normal, oropharynx moist, no oral exudates, nose normal. [] Eyes: PERRLA, EOMI, conjunctiva normal, no discharge. [] Neck: Normal range of motion, no tenderness, supple, no stridor. [] Cardiovascular:Heart rate regular rhythm, no murmur [] Lungs & Thorax: Bilateral breath sounds clear to auscultation [] Abdomen: Bowel sounds normal, soft, no tenderness, no masses, no pulsatile masses. [] Skin: Warm, dry, no erythema, no rash. [] Back: No tenderness, no CVA tenderness. [] Extremities: No tenderness, no cyanosis, no clubbing, ROM intact, trace bilateral lower extremity edema. Negative Homans' sign bilaterally, spider veins noted to bilateral lower extremities Neurologic: Alert and oriented X 3, normal motor function, normal sensory function, no focal deficits noted. [] Psychologic: Affect normal, judgement normal, mood normal. [] Current Patient Data: Labs: Laboratory Tests Test 08/11/21 19:25 White Blood Count 5.4 x10^3/uL (4.0-11.0) Red Blood Count 4.07 x10^6/uL (3.50-5.40) Hemoglobin 12.8 g/dL (12.0-15.5) Hematocrit 38.1 % (36.0-47.0) Mean Corpuscular Volume 94 fL (79-100) Mean Corpuscular Hemoglobin 31 pg (25-35) Mean Corpuscular Hemoglobin Concent 34 g/dL (31-37) Red Cell Distribution Width 13.1 % (11.5-14.5) Platelet Count 221 x10^3/uL (140-400) Neutrophils (%) (Auto) 48 % (31-73) Lymphocytes (%) (Auto) 41 % (24-48) Monocytes (%) (Auto) 8 % (0-9) Eosinophils (%) (Auto) 3 % (0-3) Basophils (%) (Auto) 1 % (0-3) Neutrophils # (Auto) 2.6 x10^3/uL (1.8-7.7) Lymphocytes # (Auto) 2.2 x10^3/uL (1.0-4.8) Monocytes # (Auto) 0.4 x10^3/uL (0.0-1.1) Eosinophils # (Auto) 0.2 x10^3/uL (0.0-0.7) Basophils # (Auto) 0.0 x10^3/uL (0.0-0.2) Prothrombin Time 13.0 SEC (11.7-14.0) Prothrombin Time INR 1.0 (0.8-1.1) Activated Partial Thromboplast Time 29 SEC (24-38) Sodium Level 138 mmol/L (136-145) Potassium Level 3.9 mmol/L (3.5-5.1) Chloride Level 106 mmol/L (98-107) Carbon Dioxide Level 27 mmol/L (21-32) Anion Gap 5 (6-14) L Blood Urea Nitrogen 14 mg/dL (7-20) Creatinine 1.0 mg/dL (0.6-1.0) Estimated GFR (Cockcroft-Gault) 54.5 BUN/Creatinine Ratio 14 (6-20) Glucose Level 93 mg/dL (70-99) Calcium Level 8.9 mg/dL (8.5-10.1) Total Bilirubin 0.3 mg/dL (0.2-1.0) Aspartate Amino Transferase (AST) 27 U/L (15-37) Alanine Aminotransferase (ALT) 33 U/L (14-59) Alkaline Phosphatase 57 U/L (46-116) Total Protein 7.6 g/dL (6.4-8.2) Albumin 4.0 g/dL (3.4-5.0) Albumin/Globulin Ratio 1.1 (1.0-1.7) Laboratory Tests 08/11/21 19:25 Laboratory Tests 08/11/21 19:25 Vital Signs: Vital Signs Date Time Temp Pulse Resp B/P (MAP) Pulse Ox O2 Delivery O2 Flow Rate FiO2 08/11/21 18:59 98.5 78 18 149/72 (97) 97 Room Air 98.5 EKG: EKG: [] Radiology/Procedures: Radiology/Procedures: []PROCEDURE: VENOUS LOWER EXT BILATERAL Bilateral lower extremity venous Doppler ultrasound History: Reason: BLE numbness, hx of DVT LLE Comparison: None. Procedure: Color flow Doppler, Doppler spectral analysis, and 2D images are obtained with and without compression in the area of the common femoral vein, superficial femoral vein - femoral vein junction, main femoral vein (superficial femoral vein) and popliteal vein. Veins of the proximal calf are also imaged. Findings: There is normal color flow, augmentation, and compressibility of all visualized vein segments. No evidence of deep venous thrombus is present. IMPRESSION: No evidence of right or left lower extremity deep venous thrombosis. Electronically signed by: Ari Sheridan MD (08/11/2021 8:25 PM) [facility] DICTATED and SIGNED BY: ARI SHERIDAN MD DATE: 08/11/212022 Course & Med Decision Making: Course & Med Decision Making Pertinent Labs and Imaging studies reviewed. (See chart for details) This is a 70-year-old female patient presenting to the ED today with bilateral lower extremity pain and swelling, symptoms for over 1 month. Venous Dopplers of bilateral lower extremities are negative. Labs are negative for any acute findings. Patient was discharged on gabapentin instructed to continue following up with her own PCP April Disclaimer: April Disclaimer: This electronic medical record was generated, in whole or in part, using a voice recognition dictation system. Departure Departure Impression: Primary Impression: Lower extremity pain, bilateral Disposition: HOME / SELF CARE / HOMELESS Condition: STABLE Referrals: CORRIE WILHELM MD (PCP) Follow-up in 1 week Patient Instructions: Musculoskeletal Pain Additional Instructions: You were evaluated in the emergency room for bilateral lower extremity swelling and pain. We highly encourage you to to follow-up with your doctor in the next 1 week. Try to elevate your lower extremities. Take the prescribed medications as needed for your pain Scripts Gabapentin (GABAPENTIN ) 300 Mg Capsule 300 MG PO TID for NEUROGENIC PAIN, #30 CAP Prov: CHRISTIANNE TSAI APRN 08/11/21 CHRISTIANNE TSAI APRN Aug 11, 2021 22:13
== END 2021-08-11 22:15 | disposition home or self-care (01) ==
LOC: ER 18:58
DX: M79.604 Pain in right leg (principal); M79.605 Pain in left leg; Z86.718 Personal history of other venous thrombosis and embolism; Z91.041 Radiographic dye allergy status; Z88.0 Allergy status to penicillin
CPT/HCPCS: 36415; 80053; 85025; 85610; 85730; 93970; 99285-25